=== PATIENT | male | born 2000 | race Caucasian/White ===

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

== ENCOUNTER 2021-03-04 20:50 | Emergency (ER) | payer OTHER ==
[~2021-03-04] VITALS: Ht 175.3 cm; Wt 77.3 kg
[2021-03-04] MEDS ORDERED: PERTUSS(ACELL),DIPH,TET VAC/PF 0.5 ML SYRINGE IM. ONE (22:00)
[2021-03-04] MEDS ORDERED: BACITRACIN 0.9 GM PACKET OINTMENT TP ONE (22:00)
[2021-03-05] MEDS ORDERED: IBUPROFEN 600 MG TABLET PO ONE (00:15)
[2021-03-05 00:18] VITALS: BP 128/62
== END 2021-03-05 00:18 | disposition home or self-care (01) ==
LOC: EMS 20:55
DX: S83.91XA Sprain of unspecified site of right knee, initial encounter (principal); S30.811A Abrasion of abdominal wall, initial encounter; S50.811A Abrasion of right forearm, initial encounter; S90.31XA Contusion of right foot, initial encounter; S70.02XA Contusion of left hip, initial encounter; V47.5XXA Car driver injured in collision with fixed or stationary object in traffic accident, initial encounter; Y93.89 Activity, other specified; Y92.488 Other paved roadways as the place of occurrence of the external cause; Y99.8 Other external cause status
CPT/HCPCS: 29530; 72170; 90471; 90715; 99284

== ENCOUNTER 2023-05-18 19:11 | Emergency (ER) | payer OTHER ==
[~2023-05-18] VITALS: Ht 165.1 cm; Wt 81.8 kg
[~2023-05-18 19:11] MED LIST: ACET-3385 PO; ACET-66 PO; CEPH-558 PO; DIPH-654 PO; IBUP-1492 PO; ONDA-104 PO
[2023-05-18 22:47] VITALS: BP 116/70; PULSE 74; RESP 16; TEMP 97.3
== END 2023-05-18 23:22 | disposition home or self-care (01) ==
LOC: EMS 19:27
DX: R07.89 Other chest pain (principal); F12.90 Cannabis use, unspecified, uncomplicated
CPT/HCPCS: 71046; 93005; 99283